=== PATIENT | male | born 1975 | race Caucasian/White ===

== ENCOUNTER 2022-07-15 16:02 | Emergency (ER) | payer OTHER, SELFPAY ==
[2022-07-15] MEDS: LIDOCAINE HCL 1% PF 30 ML VIAL 20 ML INFILTRATE (16:43)
--- NOTE | 2022-07-15 17:34 | ED.SKABFB ---
HPI - Skin/Abscess/Foreign Bdy General Chief complaint: Skin/Abscess/Foreign Body Stated complaint: abscess Time Seen by Provider: 07/15/22 16:14 History of Present Illness HPI narrative: 47-year-old male history of Crohn's presents to the emergency room for evaluation of pain to his upper gluteal cleft since yesterday. Denies fever. No history of previous abscesses. Has been taking Tylenol with no improvement of his discomfort. Related Data Home Medications Medication Instructions Recorded Confirmed sulfasalazine 500 mg tablet 0.5 gm PO BID 10/17/19 Allergies Allergy/AdvReac Type Severity Reaction Status Date / Time iron Allergy Mild BURNING Verified 10/17/19 11:04 TO STOMACH , VOMITING Review of Systems Review of Systems: CONSTITUTIONAL: Denies fever, chills, or sweats. EYES: Denies visual changes, redness, or discharge. ENT: Denies rhinorrhea, congestion, sore throat, or otalgia. CARDIOVASCULAR: Denies chest pain, palpitations, or edema. RESPIRATORY: Denies cough or dyspnea. GASTROINTESTINAL: Denies abdominal pain, nausea, vomiting, or diarrhea. GENITOURINARY: Denies dysuria or hematuria. SKIN: Denies rash or itching. MUSCULOSKELETAL: Denies back pain, joint pain, or myalgia. NEUROLOGIC: Denies headache, numbness, dizziness, or weakness. PSYCHIATRIC: Denies anxiety or depression. 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 HEAD: Normocephalic, atraumatic. EYES: Conjunctivae normal, PERRLA and EOMI. CHEST: Clear to auscultation. No respiratory distress. No wheezes rales or rhonchi. HEART: Regular rate and rhythm. No murmur heard. Normal peripheral pulses. ABDOMEN: Soft, nontender, nondistended, normal active bowel sounds. EXTREMITIES: Normal range of motion. No edema. No clubbing or cyanosis SKIN: Quarter sized indurated erythematous area to the pilonidal sinus. Scant amount of dried purulent drainage noted. No lymphangitic spread. NEURO: No focal deficits. Alert and oriented x3. MAEW. CN's II-XI intact bilaterally, normal gait PSYCH: Cooperative. Normal mood and affect. Course Course Emergency Course: Attempting to train pilonidal abscess. After the patient was anesthetized, 11 blade was used to open up. Scant amount of purulent drainage and blood was expressed. Patient. Stated that she needs to take warm sitz bath's and to complete his course of antibiotics as this will soften up the abscess it will naturally just drain. Procedures Abscess I/D other: Date of Incision: 07/15/22 Time of Incision: 17:38 Sedation/analgesia: none Local Anesthetic: lidocaine 1% Amount of anesthesia used (mL): 3 Technique: incised with #11 blade Amount of fluid expressed (mL): 0.5 Irrigation: No Packing used?: none I&D Results: Pus and Blood Discharge Plan Discharge Clinical Impression: Cyst, pilonidal, with abscess Patient Disposition: Home, Self-Care Condition: Stable Instructions: Antibiotic Form, Pilonidal Cyst (ED), Abscess (ED) Prescriptions: New tramadol 50 mg tablet
[2022-07-15 18:06] VITALS: BP 114/82; PULSE 99; RESP 20; TEMP 36.4; O2SAT 99
== END 2022-07-15 18:09 | disposition home or self-care (01) ==
PROVIDERS: Emergency Provider Nurse Practitioner Family
DX: L05.01 Pilonidal cyst with abscess (principal); K50.90 Crohn's disease, unspecified, without complications; M07.60 Enteropathic arthropathies, unspecified site; M47.816 Spondylosis without myelopathy or radiculopathy, lumbar region; Z90.49 Acquired absence of other specified parts of digestive tract
CPT/HCPCS: 10060; 10080; 96365; 99284; J0696